=== PATIENT | male | born 1985 | race Caucasian/White ===

== ENCOUNTER → 2023-09-13 | Outpatient (CLI) | payer BC ==
--- NOTE | 2023-09-17 22:30 | MR ---
EXAMINATION TYPE: MR elbow RT wo con DATE OF EXAM: 09/13/2023 COMPARISON: Right elbow radiographs 09/12/2023 HISTORY: Right elbow pain, swelling, and limited movement since 09-01-23 TECHNIQUE: Multiplanar, multisequence images of the right elbow were acquired without contrast. FINDINGS: BONES/JOINTS: Bone marrow signal is normal. Joint spaces are maintained. Articular cartilage is freddy l. No joint effusion. LIGAMENTS: The medial ligamentous structures, including the ulnar collateral ligament, are intact. La teral ligamentous structures are intact. TENDONS: The distal biceps as completely torn and retracted approximately 6.6 cm. The brachialis tend on is intact. Distal triceps tendon is intact. The common extensor tendon is normal. The common flexo r tendon demonstrates increased intrasubstance signal, relating to tendinosis.. NEUROVASCULAR: Normal neurovascular structures. Cubital tunnel is normal. SOFT TISSUES: Normal. No bursal distention. IMPRESSION: 1. Complete retracted tear of the distal biceps tendon. 2. Common flexor tendinosis.
== END | disposition home or self-care (01) ==
LOC: RADMRIMAIN 13:35
PROVIDERS: ATTEND Orthopaedic Surgery
DX: S46.211A Strain of muscle, fascia and tendon of other parts of biceps, right arm, initial encounter (principal); X58.XXXA Exposure to other specified factors, initial encounter

== ENCOUNTER 2023-09-19 08:52 | Day surgery (SDC) | payer BC ==
--- NOTE | 2023-09-17 09:19 | P.HPOR ---
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 Physical Examination: RUE: AIN/PIN/Radial/Ulnar/Median motor intact. Radial/Ulnar/Median SILT. 2+/4 Radial/Ulnar pulses palpated. 5/5 APB, 5/5 FDI. Negative Finkelsteins, negative CMC grind, negative Durkan's compression. Bruising/swelling present over antecubital fossa with extension down into the forearm. Positive Hook test. Imaging: MRI of the right elbow reviewed from 09/13/23 demonstrates complete tear of distal biceps tendon with 8cm of retraction. Impression: 1.) Right distal biceps tendon rupture Plan: Diagnosis and treatment options were discussed with the patient. We discusse surgical vs non surgical treatment options and due to his age and activity demands he wishes to pursue surgical intervention with a right distal biceps tendon repair. Risks and benefits of surgery including bleeding, infection, damage to surrounding tissue, need for further surgery, residual numbness were discussed and the patient wished to go forward with surgery. The patient was agreeable with this plan. CC: Alcon Portillo MD -Saleem aPrks DO Orthopedic Hand/Upper Extremity Surgeon Physical Examination Osteopathic Statement: *. No significant issues noted on an osteopathic structural exam other than those noted in the History and Physical/Consult.
[2023-09-17 12:00] VITALS: BMI 34.9
[~2023-09-19 08:52] MED LIST: HYDROmorphone 0.5 MG/0.5 ML SYRINGE IVP PRN; LIDOCAINE 1% (10MG/ML) FOR IV START INTRADERMA PRN; SCOPOLAMINE 1 MG/72 HR PATCH TRANSDERM ONE; droPERidol 5 MG/2 ML VIAL IVP ONE
[2023-09-19] MEDS: LACTATED RINGERS 1,000 ML IV SCH (09:53)
[2023-09-19] MEDS: DEXAMETHASONE SOD PHOSPHATE 4 MG/ML 1 ML VIAL IV ONE (09:55)
[2023-09-19] MEDS: ONDANSETRON 4 MG/2 ML VIAL IVP ONE (09:55)
[2023-09-19] MEDS: MIDAZOLAM 2 MG/2 ML VIAL IVP ONE (10:08)
--- NOTE | 2023-09-19 10:22 | P.ANPRN ---
Procedure Note - Anesthesia - Nerve Block Performed Right Supraclavicular Single Time Out Performed: Yes Date of Procedure: 09/19/23 Procedure Start Time: 10:06 Procedure Stop Time: 10:12 Location of Patient: PreOp Indication: Acute Post-Operative Pain, Analgesia, Requested by Surgeon Sedation Type: Sedate with meaningful contact maintained Preparation: Sterile Prep Position: Sitting Catheter: None Needle Types: Pajunk Needle Gauge: 21 Ultrasound used to visualize needle placement: Yes Ultrasound used to observe medication spread: Yes Injectate: 0.5% Ropivacaine (see comment for volume) (Ropiv 20ml + decadron 4mg. AttemptX1) Blood Aspirated: No Pain Paresthesia on Injection Noted: No Resistance on Injection: Normal Image Stored and Saved: Yes Events: Uneventful and Well Tolerated
[2023-09-19] MEDS ORDERED: LIDOCAINE 1% INJ 10MG/ML (20 ML MDV) ONE (11:35)
[2023-09-19] MEDS ORDERED: fentaNYL (PF) 50 MCG/ML 2 ML AMP ONE (11:35)
[2023-09-19] MEDS ORDERED: DEXAMETHASONE SOD PHOSPHATE 4 MG/ML 1 ML VIAL ONE (11:35)
[2023-09-19] MEDS ORDERED: ROPIVACAINE 5 MG/ML 30 ML VIAL ONE (11:35)
[2023-09-19] MEDS ORDERED: PROPOFOL 10 MG/ML 20 ML VIAL IV ONE (11:35)
[2023-09-19] MEDS ORDERED: MIDAZOLAM 2 MG/2 ML VIAL ONE (11:35)
[2023-09-19] MEDS: LACTATED RINGERS 1,000 ML IV ONE (12:13)
[2023-09-19 13:57] VITALS: TEMP 97
[2023-09-19 15:29] VITALS: BP 144/75; PULSE 83; RESP 16
--- NOTE | 2023-09-19 17:56 | P.OP ---
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 He presents today for right distal biceps tendon avulsion repair. Risks and benefits of surgery were discussed with the patient including bleeding, damage to surrounding tissue, infection, paresthesias, need for further surgery and the patient wished to proceed with surgical intervention. The patient was s een in the pre-operative area by myself. Consent and H&P were completed and updated. The correct extremity was marked in the pre-operative area by myself and all other questions were answered. Patient received an upper extremity nerve block by the department of anesthesia. He then was brought to the operating room by the department of anesthesia. He was transferred to the operative table and a rolling hand table was brought to the side of the operative extremity. The patient was then drifted off to sleep by the department of anesthesia. A nonsterile tourniquet was then applied to the operative extremity and the right upper extremity was then prepped and draped in normal sterile fashion. Pre-operative time out was performed indicating the correct patient, procedure and laterality. All in the room agreed. Pre-operative antibiotics were given prior to skin incision. The operative extremity was the exsanguinated with an esmarch bandage and the tourniquet was inflated to 250mmHg. 15 blade scalpel was used to make a 4cm transverse incision 3 cm distal to the anterior elbow antecubital fossa crease. Blunt dissection was then performed in subcutaneous tissues, retractors were placed taking care to not put excessive force laterally to avoid pressure on the LABCN. Seroma was identified and the distal end of the biceps tendon was identified just proximal to the bicipital grove with adhesions formed to the surrounding gil and vascular structures which were carefully dissected, the end of the tendon was then grasped with an Fior clamp. Edges were trimmed of degenerative tissue to create a more profiled distal tip. A number 2 looped fiberwire was then used to sequentially grasp the tendon starting 2.5cm proximal to the distal end. The last stitch was placed in a locking fashion. Tendon sizer was then utilized the distal tendon was able to fit through a 7mm hole. Attention was then brought back to the antecubital fossa and deeper dissection was taken down to the radial tuberosity. Tendon remnants were debrided carefully with rongeur. The forearm was then maximally supinated to reveal the bicipital tuberosity on the radius in order to move the PIN nerve as far radial as possible. A 3.2mm guide pin was then inserted bicortically into the radial tuberosity aimed 30 degrees ulnarly to avoid PIN damage. Correct placement was then confirmed on flouroscopy. A 8mm drill was then used to drill the near cortex only. The wound was then copiously irrigated. The free ends of the suture were then passed through the Arthrex cortical button to engage the tension slide mechanism. Cortical button was placed into the button forest and conservation worker and inserted through the drill hole and deployed. Tension was then applied to snug the cortical button flush against the dorsal cortex. The free suture limbs were then tensioned to fully dock the tendon in the bone tunnel. A free needle was then used to pass one limb through the tendon and multiple square knots were tied. Mini C arm was then used to confirm that the button had flipped and was lying flush against the cortex of the radius. The wound was then irrigated. Closure was performed with interrupted 4-0 monocryl suture followed by a running subcuticular suture. Exofin glue was then applied to the wound. 4x4s, webril and a blaine wrap with the elbow in slight flexion was applied. The tourniquet was let down and the hand had immediate normal perfusion. The patient was then woken and transferred to PACU in stable condition. Saleem Parks DO Orthopedic Hand/Upper Extremity Surgeon
== END 2023-09-19 15:07 | disposition home or self-care (01) ==
LOC: OR 08:52
PROVIDERS: ATTEND Orthopaedic Surgery Hand Surgery
DX: S46.211A Strain of muscle, fascia and tendon of other parts of biceps, right arm, initial encounter (principal); G89.18 Other acute postprocedural pain; F41.9 Anxiety disorder, unspecified; F32.A Depression, unspecified; Z79.899 Other long term (current) drug therapy; Z88.1 Allergy status to other antibiotic agents; W51.XXXA Accidental striking against or bumped into by another person, initial encounter; Y93.22 Activity, ice hockey
CPT/HCPCS: 64415; 24342; C1713; J2250; J1100; J0690; J2405; J2001; J3010; J2795; J2704